=== PATIENT | male | born 1980 | race Asian ===

== ENCOUNTER 2016-11-19 21:03 | Emergency (ER) | payer MEDICAID ==
[~2016-11-19] VITALS: Ht 165.1 cm; Wt 104.3 kg
[2016-11-19 21:05] VITALS: BP 129/77
[2016-11-19 21:29] LABS: BASOPHILS # (AUTO) 0.1 K/uL (0.00-0.22); BASOPHILS % (AUTO) 0.9 % (0.0-2.0); EOSINOPHILS # (AUTO) 0.3 K/uL (0-0.4); EOSINOPHILS % (AUTO) 2.3 % (0.0-4.0); LYMPHOCYTES # (AUTO) 2.2 K/uL (2.0-11.5); MEAN CORPUSCULAR HEMOGLOBIN 32 pg (27-31); MEAN CORPUSCULAR HGB CONC 34 g/dL (33-37); MEAN CORPUSCULAR VOLUME 94 fL (80-94); MONOCYTES # (AUTO) 0.7 K/uL (0.8-1.0); NEUTROPHILS # (AUTO) 9.8 K/uL (1.8-7.7); NEUTROPHILS % (AUTO) 74.8 % (42.2-75.2); PLATELET COUNT (AUTO) 215 K/uL (140-450); RED BLOOD CELL COUNT(AUTO) 4.07 MIL/uL (4.20-6.10); RED CELL DISTRIBUTION WIDTH 11.9 % (11.6-13.7); WHITE BLOOD COUNT (AUTO) 13.1 K/uL (4.8-10.8)
[2016-11-19 21:41] LABS: ANION GAP 13.7 (8-16); CALCIUM 8.2 mg/dL (8.5-10.1); CARBON DIOXIDE 24.7 mmol/L (21-32); CREATININE 1.1 mg/dL (0.7-1.3); POTASSIUM 5.4 mmol/L (3.5-5.1)
[2016-11-19 21:47] LABS: ALBUMIN 3.6 g/dL (3.4-5.0); TOTAL BILIRUBIN 0.6 mg/dL (0.0-1.0); TOTAL PROTEIN, SERUM 7.3 g/dL (6.4-8.2)
[2016-11-19 21:58] LABS: LACTIC ACID 1.8 mmol/L (0.4-2.0)
--- NOTE | 2016-11-19 21:59 | NUR ---
BIBA TO ER OF4
--- NOTE | 2016-11-19 22:38 | NUR ---
MOVED TO ER BED 6
--- NOTE | 2016-11-19 22:40 | NUR ---
36Y/M PT. BIBA TO ED WITH C/O GENERALIZED WEAKNESS X 2 DAYS. PER EMS;PT. GENERALIZED WEAKNESS, STRESS, N/V, BS 315 ON SCENE HX. HTN, POSSIBLE DM. PT SKIN IS PINK/WARM/DRY; AAOX4 WITH EVEN AND STEADY GAIT; LUNGS CLEAR BL; HR EVEN AND REGULAR; PT DENIES ANY FEVER, CP, SOB, OR COUGH AT THIS TIME; PATIENT STATES PAIN OF 0/10 AT THIS TIME; VSS; PATIENT POSITIONED FOR COMFORT; HOB ELEVATED; BEDRAILS UP X2; BED DOWN. ER MD MADE AWARE OF PT STATUS.
[2016-11-19] MEDS: INSULIN HUMAN REGULAR 100 UNITS/ML 10 ML VIAL IVP ONE (23:59)
[2016-11-20] MEDS: SODIUM POLYSTYRENE 15 GM/60 ML UDBTL PO ONE (00:04)
[2016-11-20] MEDS: NACL 0.9% 1,000 ML IV ONE (00:04)
--- NOTE | 2016-11-20 02:14 | NUR ---
Patient discharged with v/s stable. Written and verbal after care instructions given and explained. Patient verbalized understanding. Ambulatory with steady gait. All questions addressed prior to discharge. Advised to follow up with PMD.
[2016-11-20 02:19] VITALS: BP 132/76
== END 2016-11-20 02:19 | disposition home or self-care (01) ==
LOC: MED 21:03
DX: K52.9 Noninfective gastroenteritis and colitis, unspecified (principal); E11.9 Type 2 diabetes mellitus without complications; E86.0 Dehydration; E87.5 Hyperkalemia
CPT/HCPCS: 36415; 80053; 82948; 83605; 85025; 96374; 99284; J1815; J7030